=== PATIENT | female | born 2000 | race Caucasian/White ===

== ENCOUNTER 2021-01-25 06:23 | Day surgery (SDC) | payer OTHER ==
[2021-01-25] MEDS ORDERED: BUPIVACAINE 0.5% VIAL IJ ONE (06:38)
[2021-01-25] MEDS ORDERED: XYLOCAINE 1% HCL 20 ML MDV ONE ×2 (06:38→10:51)
[2021-01-25] MEDS ORDERED: Lactated Ringers 1,000 ML IV SCH (07:00)
[2021-01-25] MEDS ORDERED: XYLOCAINE 1%/Epi 1:100000 MDV 20 ML ONE (08:20)
[2021-01-25] MEDS ORDERED: KEFZOL 1 GM** 3 G in Sodium Chloride 0.9% 50 ML 50 ML IV ONE (08:30)
[2021-01-25 08:36] LABS: ALBUMIN 3.9 g/dL (3.5-5.0); ALKALINE PHOSPHATASE 83 U/L (38-126); BLOOD UREA NITROGEN 17 mg/dL (7-17); CHLORIDE 104 mmol/L (98-107); Calcium 9.6 mg/dL (8.4-10.2); Carbon Dioxide 27 mmol/L (22-30); Creatinine 1 0.78 mg/dL (0.52-1.04); EST GLOMERULAR FILTRATION RATE > 60.0 ML/MIN; Glucose 108 mg/dL (74-106); Potassium 4.7 mmol/L (3.5-5.1); SGOT/AST 29 U/L (14-36); SGPT/ALT 35 U/L (0-35); SODIUM 138 mmol/L (137-145); Total Protein 7.1 g/dL (6.3-8.2)
[2021-01-25] MEDS ORDERED: Quelicin Fliptop 200 MG/10 ML ONE (08:55)
[2021-01-25] MEDS ORDERED: DIPRIVAN 200 MG/20 ML IV ONE (08:55)
[2021-01-25] MEDS ORDERED: Versed 2 MG/2 ML Injection ONE (08:55)
[2021-01-25] MEDS ORDERED: SUBLIMAZE 250 MCG/5 ML ONE (08:55)
[2021-01-25] MEDS ORDERED: Sufenta 50 MCG/ML ONE (10:01)
[2021-01-25] MEDS ORDERED: Kenalog-40 ONE (10:50)
[2021-01-25] MEDS ORDERED: Sensorcaine 0.25% 10 ML ONE (10:50)
--- NOTE | 2021-01-25 11:02 | XRAY ---
Indication: Arthroscopy and loose body removal left ankle. Intraoperative fluoroscopy provided for 2 minute 41 seconds. 8 digital spot images of submitted demonstrates instrumentation. Correlate with intraoperative findings/report.
--- NOTE | 2021-01-25 11:02 | XRAY ---
2 minutes and 41 seconds fluoroscopy time in surgery for arthroscopy and bone removal left ankle.
[2021-01-25] MEDS ORDERED: TORAdol 30 mg Injection ONE (11:23)
[2021-01-25] MEDS ORDERED: MORPHINE SULFATE 10 MG/ML ONE (11:23)
[2021-01-25] MEDS ORDERED: SUBLIMAZE 100 MCG/2 ML ONE (11:24)
[2021-01-25] MEDS ORDERED: Zofran 4 MG/2 ML VIAL ONE (12:13)
[2021-01-25 13:03] VITALS: O2SAT 92
--- NOTE | 2021-01-25 13:55 | OP ---
Podiatry Procedure Note Procedure Date:: 01/25/21 Procedure Time: 09:30 Podiatry Procedure Note: dictated
[2021-01-25 14:19] VITALS: BP 144/76; PULSE 114
--- NOTE | 2021-01-28 11:55 | OP ---
SURGERY DATE/TIME: 01/25/2021 0924 PREOPERATIVE DIAGNOSES: 1) Pain left ankle joint. 2) Closed fracture of distal fibula. 3) Tenosynovitis left ankle and history of level III anterior talofibular ligament sprain. POSTOPERATIVE DIAGNOSES: 1) Pain left ankle joint. 2) Closed fracture of distal fibula. 3) Tenosynovitis left ankle and history of level III anterior talofibular ligament sprain. PROCEDURE: Left ankle arthroscopy with synovectomy and partial excision of fibula left ankle. SURGEON: Jogre Pang DPM. PRISON OFFICER: None. ANESTHESIA: General. HEMOSTASIS: Mid-calf tourniquet set to 250 mm of Mercury for approximately 45 minutes. ESTIMATED BLOOD LOSS: Less than 20 cc. MATERIALS: 2-0 Vicryl, 3-0 Nylon. INJECTABLES: 1 cc 40 mg of Kenalog, 2 cc of lidocaine plain and 2 cc of Marcaine plain injected into the joint postoperatively as well as a preoperative block consisting of 20 cc of a 1:1 mixture of 0.5% Marcaine and 1% lidocaine plain in an ankle block-type fashion. INDICATIONS FOR PROCEDURE: The patient presented to me approximately three weeks ago after a long standing history of left ankle pain following an injury back in June 2020. She stated at the time of follow up she had been told by multiple providers to do different things in regards to the ankle pain that she was experiencing and has not gotten any relief at this time. MRI was obtained before the end 2019 demonstrating that there was sprain of the anterior talofibular ligament as well as a small avulsion of the distal tip of the fibula that has been delayed in its healing process and has been causing a significant amount of pain on the outside of her ankle. Follow up imaging demonstrated the fibular fragment as well as crepitation with range of motion and exquisite pain to the point of inability to do a full thorough physical exam until her second visit. At this time discussed with patient that an arthroscopy would be the best way to evaluate and remove the bone fragment as well as deal with the degeneration due to the long standing injury as well as pain and crepitation with range of motion to that ankle. She understands and wishes to proceed with surgical intervention at this time. All risks, benefits and complications have been discussed with the patient and she understands and agrees. There were no guarantees as to the outcome of the surgical intervention in regards if there would be need for further surgical intervention. Partially this procedure was intended to be therapeutic. However to some degree it was also diagnostic due to the six month history of pain that she has been experiencing without any relent in her symptomatology. The patient understands and wishes to proceed at this time. DESCRIPTION OF PROCEDURE AND FINDINGS: After preoperative assessment the patient was brought into the operating room and placed on the operating room table in the supine position. The operative leg was identified to the left and marked preoperatively. A surgical time out was performed and injection of the ankle was performed with 10 ml of sterile saline via anterior medial port just medial to the tibialis anterior tendon. At this time the tourniquet was inflated to 250 mm of Mercury and a 5 mm longitudinal incision was made at the anterior medial aspect just medial to the tibialis anterior and blunt dissection was utilized to dissect through the subcutaneous tissue and down to the capsule with a small hemostat. At this point a small gush of fluid came out of the intra-articular location which identified our position intra-articularly and the blunt trocar was introduced into the joint. Following this the arthroscope was then introduced and the water flow was begun. At this time a spinal needle was introduced from the anterior lateral portal just lateral to the superficial peroneal nerve distribution and triangulation took place under arthroscopic visualization from the anterior medial portal. At this point the joint was inspected for any denuded cartilage and significant synovitis. 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 Partial synovectomy was performed with particular attention applied to the lateral aspect of the ankle. A pituitary rongeur was introduced to remove any bone fragments that were sitting within the lateral gutter. At this time the lateral gutter was cleaned out in total. However the most distal aspect of the fracture fragments were of the fibula were unable to be retrieved from the arthroscopic procedure. At this time attention then was directed back to the anterior lateral portal which was extended approximately 5 mm longer making for a total of 1 cm incision to the lateral aspect. At this time retraction was applied and arthrotomy was performed cleaning out any of the remaining bone fragments that were unable to be accessed through arthroscopic visualization. The scope was then switched from medial to lateral and the shaver was applied to the lateral aspect where there was no significant degeneration of the medial aspect of the joint and the cartilage appeared intact and of adequate quality. Partial synovectomy took place on the medial gutter as well. At this time the trocar, camera and shaver were removed from the site. On injection the fluid was removed using physical motion of the ankle joint which showed no evidence of crepitation following the procedure. Stress was applied to the anterior talofibular ligament which did show some indications of instability. However, this was not addressed at this time. The tourniquet was then deflated at approximately 45 minutes total tourniquet time. The injection consisting of 1 cc 40 mg Kenalog, 2 cc lidocaine and 2 cc bupivacaine plain were injected into the ankle and the incisions were coapted utilizing 2-0 Vicryl and 3-0 Nylon. Following this a dressing consisting of Betadine, Adaptic, 4x4's, Kerlix and a very lightly applied Yosi were applied to the left lower extremity. Following this a CAM boot was applied to the left lower extremity. The patient was reversed from anesthesia and brought into the postoperative anesthesia care unit with vital signs stable and her vascular status intact. The patient handled the anesthesia as well as the procedure without any significant complication. Postoperative orders as indicated in the patient's operative chart.
== END 2021-01-25 14:00 | disposition home or self-care (01) ==
LOC: SDC 06:23
PROVIDERS: ATTEND Podiatrist Foot & Ankle Surgery
DX: S82.831D Other fracture of upper and lower end of right fibula, subsequent encounter for closed fracture with routine healing (principal); M67.372 Transient synovitis, left ankle and foot; M25.572 Pain in left ankle and joints of left foot; M65.9 Synovitis and tenosynovitis, unspecified; Z79.899 Other long term (current) drug therapy
CPT/HCPCS: 27641; 29895; 36415; 73600; 76000; 80053; 84703; 88304; 88311; J0330; J0690; J1885; J2250; J2270; J2405; J2704; J3010; J3301